=== PATIENT | male | born 1945 | race Caucasian/White ===

== ENCOUNTER 2018-01-04 15:05 | Emergency (ER) | payer OTHER ==
[~2018-01-04 15:05] MED LIST: BACT2OIN TOP; DARV PO; DOXY100T PO; SULF1TAB47 PO; Z.0.NO CURRENT MEDS
[2018-01-04 15:07] VITALS: BP 201/99; PULSE 78; RESP 14; TEMP 98; O2SAT 97
--- NOTE | 2018-01-04 15:23 | PD ---
HPI Chief Complaint: Skin Problem Time Seen by Provider: 15:22 Travel History International Travel<30 days: No Contact w/Intl Traveler<30days: No Traveled to known affect area: No History of Present Illness HPI 72-year-old male presents to emergency department for evaluation of bilateral lower extremity ulcers. Patient states these wounds of been there for over 6 months. He has been putting hydrogen peroxide and a topical cream on them but they have not gone away. He has not been on oral antibiotics for the per his report. Eyes any fever or chills. States that they're painful, constant, moderate in severity. He has no other symptoms to report at this time. FOR[facility]LY [facility] Past Medical History Medical History: Denies Significant Hx Social History Tobacco Use: No Allergies-Medications (Allergen,Severity, Reaction): Coded Allergies: No Known Allergies (Verified , 08/17/10) Reported Meds & Prescriptions Reported Meds & Active Scripts Active No Active Prescriptions or Reported Medications Review of Systems Except as stated in HPI: all other systems reviewed are Neg Physical Exam Narrative GENERAL: All nourished elderly male patient, ambulatory and in no acute distress. SKIN: Focused skin assessment warm/dry. 10 cm in diameter ulcer like lesion on the posterior left lower extremity. There is some yellow sloughing and a serous drainage from this. 2 cm ring of erythema. No significant induration On the anterior medial aspect of the right lower extremity there is another 12 cm in diameter ulcer like lesion. This has some necrotic scabbing/tissue on the anterior aspect of it. HEAD: Atraumatic. Normocephalic. EYES: Pupils equal and round. No scleral icterus. No injection or drainage. ENT: No nasal bleeding or discharge. Mucous membranes pink and moist. NECK: Trachea midline. No JVD. CARDIOVASCULAR: Regular rate and rhythm. No murmur appreciated. RESPIRATORY: No accessory muscle use. Clear to auscultation. Breath sounds equal bilaterally. GASTROINTESTINAL: Abdomen soft, non-tender, nondistended. Hepatic and splenic margins not palpable. MUSCULOSKELETAL: No obvious deformities. No clubbing. No cyanosis. No edema. NEUROLOGICAL: Awake and alert. No obvious cranial nerve deficits. Motor grossly within normal limits. Normal speech. PSYCHIATRIC: Appropriate mood and affect; insight and judgment normal. Data Data Last Documented VS Vital Signs Date Time Temp Pulse Resp B/P (MAP) Pulse Ox O2 Delivery O2 Flow Rate FiO2 01/04/18 15:07 98.0 78 14 201/99 (133) 97 Orders Orders Wound Culture And Gram Stain (01/04/18 15:39) Iv Access Insert/Monitor (01/04/18 15:47) Complete Blood Count With Diff (01/04/18 15:47) Basic Metabolic Panel (Bmp) (01/04/18 15:47) Tibia/Fibula (Ap/Lat) (01/04/18 ) Tibia/Fibula (Ap/Lat) (01/04/18 ) Ketorolac Inj (Toradol Inj) (01/04/18 16:00) Ed Discharge Order (01/04/18 16:59) Labs Laboratory Tests Test 01/04/18 16:00 White Blood Count 10.8 TH/MM3 Red Blood Count 3.91 MIL/MM3 Hemoglobin 12.4 GM/DL Hematocrit 36.6 % Mean Corpuscular Volume 93.7 FL Mean Corpuscular Hemoglobin 31.6 PG Mean Corpuscular Hemoglobin Concent 33.7 % Red Cell Distribution Width 12.9 % Platelet Count 212 TH/MM3 Mean Platelet Volume 8.8 FL Neutrophils (%) (Auto) 78.1 % Lymphocytes (%) (Auto) 13.2 % Monocytes (%) (Auto) 7.0 % Eosinophils (%) (Auto) 1.2 % Basophils (%) (Auto) 0.5 % Neutrophils # (Auto) 8.4 TH/MM3 Lymphocytes # (Auto) 1.4 TH/MM3 Monocytes # (Auto) 0.8 TH/MM3 Eosinophils # (Auto) 0.1 TH/MM3 Basophils # (Auto) 0.1 TH/MM3 CBC Comment DIFF FINAL Differential Comment Blood Urea Nitrogen 14 MG/DL Creatinine 0.82 MG/DL Random Glucose 93 MG/DL Calcium Level 7.8 MG/DL Sodium Level 141 MEQ/L Potassium Level 3.5 MEQ/L Chloride Level 109 MEQ/L Carbon Dioxide Level 25.0 MEQ/L Anion Gap 7 MEQ/L Estimat Glomerular Filtration Rate 93 ML/MIN [facility] Medical Decision Making Medical Screen Exam Complete: Yes Emergency Medical Condition: Yes Medical Record Reviewed: Yes Differential Diagnosis Chronic wound versus acute wound versus osteomyelitis versus cellulitis Narrative Course 72-year-old male presents to emergency department for evaluation of bilateral lower extremity wounds. These been there for 6 months. The one on the left lower extremity does have some drainage and erythema surrounding it. I discussed the patient my attending physician. Imaging studies and basic lab work are complete and reassuring. Patient be started on oral antibiotics. He' ll be referred to wound care for further debridement and treatment of these wounds. He is advised to follow-up with a very care provider and return immediately with any acute worsening of symptoms.. Diagnosis Primary Impression: Chronic ulcer of left calf Additional Impression: Chronic ulcer of right calf Referrals: Primary Care Physician Patient Instructions: Acute Wound Care (GEN), General Instructions Additional Instructions: Keep the wounds clean and dry Follow-up with a development specialist Return immediately to emergency department with any acute worsening symptoms Med/Other Pt SpecificInfo: Prescription(s) given Scripts Cephalexin (Keflex) 500 Mg Cap 500 MG PO Q6H for Infection for 5 Days, #20 CAP 0 Refills Prov: Tona Michael 01/04/18 Sulfamethoxazole-Trimethoprim (Bactrim DS) 800-160 Mg Tab 1 TAB PO BID for Infection, #20 TAB 0 Refills Prov: Tona Michael 01/04/18 Disposition: 01 DISCHARGE HOME Condition: Stable Tona Michael Jan 04, 2018 15:23
[2018-01-04] MEDS ORDERED: KETOROLAC TROMETHAMINE 30 MG/ML (IVP) VIAL IV PUSH ONE (16:00)
[2018-01-04 16:27] LABS: AUTOMATED NEUTROPHIL # 8.4 TH/MM3 (1.8-7.7); BASOPHIL # 0.1 TH/MM3 (0-0.2); BASOPHIL % 0.5 % (0.0-2.0); EOSINOPHIL # 0.1 TH/MM3 (0-0.4); EOSINOPHIL % 1.2 % (0.0-4.0); HEMATOCRIT 36.6 % (39.0-51.0); HEMOGLOBIN 12.4 GM/DL (13.0-17.0); LYMPH % 13.2 % (9.0-44.0); LYMPHOCYTE # 1.4 TH/MM3 (1.0-4.8); MEAN CELL VOLUME 93.7 FL (80.0-100.0); MEAN CORPUSCULAR HEMOGLOBIN 31.6 PG (27.0-34.0); MEAN CORPUSCULAR HGB CONC 33.7 % (32.0-36.0); MEAN PLATELET VOLUME 8.8 FL (7.0-11.0); MONOCYTE # 0.8 TH/MM3 (0-0.9); NEUT % 78.1 % (16.0-70.0); PLATELET COUNT 212 TH/MM3 (150-450); RED BLOOD COUNT 3.91 MIL/MM3 (4.50-5.90); RED CELL DISTRIBUTION WIDTH 12.9 % (11.6-17.2); WHITE BLOOD COUNT 10.8 TH/MM3 (4.0-11.0)
--- NOTE | 2018-01-04 16:30 | RADRPT ---
EXAM DATE/TIME: 01/04/2018 15:58 [facility] COMPARISON: No previous studies available for comparison. INDICATIONS : Wound check. MEDICAL HISTORY : None. SURGICAL HISTORY : None. ENCOUNTER: Initial ACUITY: 4 - 6 months PAIN SCORE: 10/10 LOCATION: Right tibia/fibula. FINDINGS: No definite fractures, or dislocations are identified. No definite lytic or sclerotic lesion is seen . There is hazy subcutaneous edema bilaterally. CONCLUSION: No definite fracture is seen for technique. K. Jayme Meier MD on January 04, 2018 at 16:27 Board Certified Radiologist. This report was verified electronically.
--- NOTE | 2018-01-04 16:31 | RADRPT ---
EXAM DATE/TIME: 01/04/2018 15:58 [facility] COMPARISON: No previous studies available for comparison. INDICATIONS : Wound check. MEDICAL HISTORY : None. SURGICAL HISTORY : None. ENCOUNTER: Initial ACUITY: 4 - 6 months PAIN SCORE: 10/10 LOCATION: Left tibia/fibula FINDINGS: No definite fractures, or dislocations are identified. No definite lytic or sclerotic lesion is seen . There is hazy subcutaneous edema diffusely. CONCLUSION: No definite fracture is seen for technique. K. Jayme Meier MD on January 04, 2018 at 16:28 Board Certified Radiologist. This report was verified electronically.
[2018-01-04 16:54] LABS: CALCIUM 7.8 MG/DL (8.5-10.1); CREATININE 0.82 MG/DL (0.60-1.30)
[2018-01-04] MEDS ORDERED: BACT800T5 PO (17:04)
[2018-01-04] MEDS ORDERED: CEPH-460 PO (17:04)
== END 2018-01-04 17:30 | disposition home or self-care (01) ==
LOC: NEPD 15:05
DX: L97.219 Non-pressure chronic ulcer of right calf with unspecified severity (principal); L97.229 Non-pressure chronic ulcer of left calf with unspecified severity; B96.20 Unspecified Escherichia coli [E. coli] as the cause of diseases classified elsewhere; B95.61 Methicillin susceptible Staphylococcus aureus infection as the cause of diseases classified elsewhere; B96.89 Other specified bacterial agents as the cause of diseases classified elsewhere
CPT/HCPCS: 73590; 80048; 85025; 86403; 87070; 87077; 87186; 96374; 99283; J1885; 87205